=== PATIENT | male | born 1935 | race Caucasian/White ===

== ENCOUNTER → 2016-05-28 | Outpatient (CLI) | payer OTHER ==
[~2016-05-28] MED LIST: AMLODIPINE BESYL5 MG PO; ASPIRIN81 M1 PO; ASPIRIN81 M2 PO; AZILECT1 MG PO; BACTROBAN22 GM TP; CARBIDOPA LEVO; CARBIDOPA-LEVO1 TA1 PO; DIOVAN; DIOVAN80 M1 PO; DOK100 MG PO; LODOSYN25 M1; LORTAB 5/500 TA1 TA1 PO; METOPROLOL TAR25 MG PO; MIRAPEX; MIRAPEX1.5 MG PO; MULTI-VITAMIN1 TAB PO; NEXIUM PO; TOPROL XL; VESICARE PO; VESICARE5 MG PO; VYTORIN 10/20 T1 TAB PO
--- NOTE | ~2016-05-28 | CT2 ---
[facility] A Service of [facility] & [facility] RADIOLOGY TEXT RESULTS PATIENT: LUDMILA CONDON [facility] UNIT #: [id number] AGE: [address]: Aditya Freitas MD SEX: M ORDER DR: [id number] [facility] [address] [place], [place] [address] [id number] O MR#: [id number] Acc #: [id number] NAME: LUDMILA CONDON. : 1935 SEX: M STUDY DATE/TIME: 05/28/2016 14:27 [facility] ROOM: STUDY DESCRIPTION: CT Abd and Pelv W Cont Attending Physician: Aditya Freitas M.D. Referring Physician: Aditya Freitas M.D. Ordering Physician: Aditya Freitas M.D. Primary Care Physician: Gautam Day M.D. MEDICAL IMAGING REPORT This report is preliminary unless electronic signature is present EXAM Abdomen and pelvis CT with contrast. HISTORY Abdominal pain beginning on the left and extending across the beltline toward the right for the past 3 weeks accompanied by constipation. Symptoms occurred 1 year ago, as well. TECHNIQUE Axial imaging was obtained with oral and intravenous contrast. 100 mL of Isovue was used. This CT exam was performed with one or more of the following radiation dose reduction techniques: automatic exposure control, adjustment of mA and/or kV according to patient size, and iterative reconstruction. FINDINGS Multiple small simple hepatic cysts are seen. No suspicious liver lesions are noted. The pancreas shows diffuse fatty atrophy. Spleen size is normal. The kidneys and adrenals have a normal appearance. There is no evidence of retroperitoneal adenopathy or ascites and no distended bowel loops are seen. Scoliosis is noted and postoperative changes of lower lumbar fusion are seen. There is a left inguinal hernia that contains fat and omentum but no loops of bowel. Prostatic enlargement is noted. There is no evidence of pelvic adenopathy, mass, or fluid collection. IMPRESSION Left inguinal hernia containing fat and omentum but no loops of bowel. Prostatic enlargement. No acute or inflammatory changes are seen in the abdomen or pelvis. STS. [facility] A Service of [facility] & [facility] RADIOLOGY TEXT RESULTS PATIENT: LUDMILA CONDON LOCATION: [facility] : 35 UNIT #: [id number] AGE: [address]: Aditya Freitas MD SEX: M ORDER DR: Dictated by... Logan Esparza M.D. THIS IS AN ELECTRONICALLY VERIFIED REPORT Logan Esparza M.D. at 05/29/2016 1:04 PM COLLEEN/ramy TD: 05/29/2016 09:24 JOB #: [id number] MEDICAL IMAGING REPORT Page 1 of 1 COPY
[2016-05-28 14:40] LABS: POC - CREATININE 1.09 mg/dL (0.64-1.27); POC - GFR >60.0 mL/min (>60)
== END | disposition home or self-care (01) ==
LOC: CCAT 12:23
PROVIDERS: Surgery
DX: R10.12 Left upper quadrant pain (principal); K40.90 Unilateral inguinal hernia, without obstruction or gangrene, not specified as recurrent; N40.0 Benign prostatic hyperplasia without lower urinary tract symptoms
CPT/HCPCS: 74177; 82565; Q9967

== ENCOUNTER → 2016-06-09 | Day surgery (SDC) | payer OTHER ==
--- NOTE | ~2016-06-09 | OR ---
Unit #: [id number] #: [id number] Patient: LUDMILA CONDON [id number] [address] [address] [id number] O MR#: [id number] NAME: LUDMILA CONDON. ROOM: Date of Procedure: 06/09/2016 Admission Date: 06/09/2016 Surgeon: Aditya Freitas M.D. : 1935 Attending Physician: Aditya Freitas M.D. Primary Care Physician: Gautam Day M.D. OPERATIVE REPORT PREOPERATIVE DIAGNOSIS Left-sided abdominal pain. POSTOPERATIVE DIAGNOSIS Left-sided abdominal pain. PROCEDURES PERFORMED 1. Esophagogastroduodenoscopy. 2. Biopsy of antrum for Helicobacter pylori testing. 3. Colonoscopy to cecum. ANESTHESIA Monitored anesthesia care. FINDINGS The patient was found to have mild gastritis on upper endoscopy. On colonoscopy, the patient was found to have a long tortuous colon, otherwise normal. SPECIMENS Sent to pathology. COMPLICATIONS None apparent. CONDITION The patient tolerated the procedure well. INDICATIONS FOR PROCEDURE The patient is an 80-year-old white male, who presents with left-sided abdominal pain. He presents at this time for further evaluation and treatment by upper and lower endoscopy. DESCRIPTION OF PROCEDURE After obtaining informed consent, the patient was brought to the endoscopy suite and after adequate monitored anesthesia care, had the endoscope placed through the mouth into the upper esophagus under direct vision. It was slowly advanced to the second portion of the duodenum without difficulty with the lumen always in view. The second and third portion of duodenum were normal as was the duodenal bulb. The pylorus opened normally. There was some mild distal gastritis present and a biopsy was Unit #: [id number] #: [id number] Patient: LUDMILA CONDON obtained for Helicobacter pylori testing. On retroflexion back to the GE junction, no hiatal hernia seen. No other abnormalities were found in the proximal third, middle third, or incisura. On pulling back above the GE junction, there was no stenosis, stricture, or neoplasm seen. There was no significant esophagitis. The remaining portion of the esophagus was within normal limits. Laryngeal structures were grossly normal as viewed from above. At this point in time, the colonoscope was placed through the anus and slowly advanced to the level of the cecum without difficulty with the lumen always in view. The patient had a very long redundant colon. However, there was no abnormality seen. The cecum was normal as was the ileocecal valve. The ascending colon was normal as was the hepatic flexure, transverse colon, splenic flexure, descending colon, sigmoid colon, and rectum. We were unable to retroflex in the rectum to the anorectal junction. On pulling back through the anal canal, there were no obvious abnormalities. On digital examination, there was a very lax sphincter tone, but no palpable abnormalities. The scope was removed without difficulty. The patient tolerated the procedure well and went from the endoscopy suite to the recovery area in stable condition. RECOMMENDATIONS Gastroesophageal reflux sheet given. Lots of liquids, high-fiber diet, tucks or wipes p.r.n. Follow up in our office as needed. Dictated by... Alhaji Richter/terrence TD: 06/10/2016 02:10 JOB #: [id number] CC: [facility] OPERATIVE REPORT Page 1 of 1 X Aditya Freitas MD X PROCEDURE OPERATIVE NOTE
== END | disposition home or self-care (01) ==
LOC: COPS 06:01
PROVIDERS: Surgery
PROC: 0DB78ZX Excision of Stomach, Pylorus, Via Natural or Artificial Opening Endoscopic, Diagnostic (ICD-10-PCS; principal; 2016-06-09 13:30)
PROC: 0DJD8ZZ Inspection of Lower Intestinal Tract, Via Natural or Artificial Opening Endoscopic (ICD-10-PCS; 2016-06-09 13:30)
DX: K29.70 Gastritis, unspecified, without bleeding (principal); K63.89 Other specified diseases of intestine; K59.00 Constipation, unspecified; K21.9 Gastro-esophageal reflux disease without esophagitis; I10 Essential (primary) hypertension; E78.5 Hyperlipidemia, unspecified; E11.9 Type 2 diabetes mellitus without complications; Z79.84 Long term (current) use of oral hypoglycemic drugs; E03.9 Hypothyroidism, unspecified; Z79.899 Other long term (current) drug therapy; J45.909 Unspecified asthma, uncomplicated; Z87.898 Personal history of other specified conditions
CPT/HCPCS: 87077

== ENCOUNTER 2016-07-12 20:42 | Emergency (ER) | payer OTHER ==
--- NOTE | ~2016-07-12 | CR172 ---
[facility] A Service of [facility] & [facility] RADIOLOGY TEXT RESULTS PATIENT: LUDMILA CONDON LOCATION: [facility] : 35 UNIT #: [id number] AGE: [address]: Dana Burns MD SEX: M ORDER DR: [id number] [facility] [address] [place], [place] [address] [id number] E MR#: [id number] Acc #: [id number] NAME: LUDMILA CONDON. : 1935 SEX: M STUDY DATE/TIME: 07/12/2016 21:30 UNIT: [facility] ROOM: STUDY DESCRIPTION: CR Knee 3 Views Lt Attending Physician: Dana Burns M.D. Ordering Physician: Dana Burns M.D. Primary Care Physician: Gautam Day M.D. MEDICAL IMAGING REPORT This report is preliminary unless electronic signature is present EXAM Left knee INDICATIONS Trauma. Left knee pain status post fall. FINDINGS 3 views of the left knee without comparison. There is no acute fracture or dislocation. No knee effusion. There is prepatellar soft tissue swelling. No foreign body. IMPRESSION Prepatellar soft tissue swelling. No underlying fracture. Dictated by... Zhen Valentin M.D. THIS IS AN ELECTRONICALLY VERIFIED REPORT Zhen Valentin M.D. at 07/12/2016 11:15 PM FERNANDA/chase TD: 07/12/2016 22:47 JOB #: [id number] MEDICAL IMAGING REPORT Page 1 of 1 COPY
== END 2016-07-12 23:13 | disposition home or self-care (01) ==
LOC: CED 20:42
DX: S80.02XA Contusion of left knee, initial encounter (principal); Z79.899 Other long term (current) drug therapy; Z79.82 Long term (current) use of aspirin; W19.XXXA Unspecified fall, initial encounter
CPT/HCPCS: 29530; 73562; 99283